=== PATIENT | female | born 1990 | race Caucasian/White ===

== ENCOUNTER 2024-03-17 14:32 | Emergency (ER) | payer OTHER ==
[2024-03-17] MEDS: Acetaminophen 500 MG Tab PO ONE (17:37)
== END 2024-03-17 19:01 | disposition home or self-care (01) ==
LOC: JP.ED 14:32
DX: S93.492A Sprain of other ligament of left ankle, initial encounter (principal); J45.909 Unspecified asthma, uncomplicated; Z79.899 Other long term (current) drug therapy; X58.XXXA Exposure to other specified factors, initial encounter
CPT/HCPCS: 73590; 73610; 99283; A9270